=== PATIENT | male | born 1935 | race Caucasian/White ===

== ENCOUNTER 2017-04-09 07:27 | Emergency (ER) | payer MEDICARE, OTHER ==
--- NOTE | 2017-04-09 08:06 | EDM.PDOC ---
ED HPI GENERAL MEDICAL PROBLEM - General Chief Complaint: General Stated Complaint: BY AMBULANCE Time Seen by Provider: 04/09/17 08:00 Source of Information: Reports: Patient, Family () - History of Present Illness Onset: Today Onset Date: 04/09/17 Onset Time: 07:00 Duration: Minutes: Location: Reports: Generalized Severity: Moderate Context: Reports: Other (developed weakness after awoke) Associated Symptoms: Reports: Weakness - Related Data Allergies Allergy/AdvReac Type Severity Reaction Status Date / Time codeine AdvReac Intermediate Nausea and Verified 04/09/17 08:31 Vomiting morphine AdvReac Intermediate Nausea and Verified 04/09/17 08:31 Vomiting Home Meds: Home Meds . [Unable to Verify Home Med List] 04/09/17 [History] Past Medical History Cardiovascular History: Reports: CAD, Other (See Below) (hypertension) ED ROS GENERAL - Review of Systems Review Of Systems: See Below Constitutional: Reports: Weakness HEENT: Reports: No Symptoms Respiratory: Reports: No Symptoms, Other (Oxygen Saturation low on arrival in 80 's) Cardiovascular: Reports: No Symptoms Endocrine: Reports: No Symptoms GI/Abdominal: Reports: No Symptoms : Reports: No Symptoms, Other (Pt. has indwelling laurent catheter ) Musculoskeletal: Reports: No Symptoms, Other (Patient has paraplegia of lower extremities) Skin: Reports: No Symptoms Neurological: Reports: Trouble Speaking, Difficulty Walking, Weakness Psychiatric: Reports: No Symptoms Hematologic/Lymphatic: Reports: No Symptoms Immunologic: Reports: No Symptoms ED EXAM, NEURO - Physical Exam Exam: See Below Text/Narrative:: Awoke with weakness Exam Limited By: No Limitations General Appearance: Alert, WD/WN, No Apparent Distress Eye Exam: Bilateral Eye: PERRL Ears: Normal External Exam, Normal Canal Nose: Normal Inspection, Normal Mucosa Throat/Mouth: Normal Inspection, Normal Lips Head Exam: Atraumatic, Normocephalic Neck: Normal Inspection, Supple Respiratory/Chest: No Respiratory Distress, Lungs Clear, Normal Breath Sounds Cardiovascular: Normal Peripheral Pulses, Regular Rate, Rhythm GI/Abdominal: Normal Bowel Sounds, Soft, Non-Tender (Male) Exam: No Hernia, Other (indwelling laurent catheter in-place) Neurological: Other (On arrival patient with decreased responsiveness/not talking and slowly improved over 10-15mins.(responding appropriately) Patient right sided weakness on exam) DTR: 1+: Bicep (R), Bicep (L), Tricep (R), Tricep (L), Patella (R), Patella (L) , Achilles (R), Achilles (L) Back Exam: Normal Inspection Extremities: Normal Inspection Psychiatric: Normal Affect Skin Exam: Warm, Dry, Intact Course - Vital Signs Last Recorded V/S: Last Vital Signs Temp 37.4 C 04/09/17 07:28 Pulse 87 04/09/17 09:11 Resp 40 H 04/09/17 07:28 BP 164/88 H 04/09/17 07:28 Pulse Ox 95 04/09/17 09:11 - Orders/Labs/Meds Orders: Active Orders 24 hr Category Date Time Status EKG Documentation Completion [RC] STAT Care 04/09/17 07:40 Active RT Aerosol Therapy [RC] ASDIRECTED Care 04/09/17 09:11 Active Chest 1V Frontal [CR] Urgent Exams 04/09/17 07:50 Taken Chest w Cont [CT] Urgent Exams 04/09/17 09:07 Ordered Head wo Cont [CT] Urgent Exams 04/09/17 07:40 Taken CULTURE BLOOD [BC] Stat Lab 04/09/17 09:31 Received Sodium Chloride 0.9% [Normal Saline] 1,000 ml Med 04/09/17 09:00 Active IV ASDIRECTED Medication Orders Sodium Chloride (Normal Saline) 1,000 mls @ 75 mls/hr IV ASDIRECTED TIM Last Admin: 04/09/17 08:56 Dose: 75 mls/hr Labs: Laboratory Tests 04/09/17 04/09/17 04/09/17 Range/Units 07:16 07:16 07:16 WBC 19.7 H (5.0-10.0) 10^3/uL RBC 5.38 (4.6-6.2) 10^6/uL Hgb 15.2 (14.0-18.0) g/dL Hct 45.0 (40.0-54.0) % MCV 83.6 (80-100) fL MCH 28.3 (27.0-34.0) pg MCHC 33.8 (33.0-35.0) g/dL Plt Count 215 (150-450) 10^3/uL Neut % (Auto) 90.7 H (42.2-75.2) % Lymph % (Auto) 2.4 L (20.5-50.1) % [place] % (Auto) 3.8 (2-8) % Eos % (Auto) 2.8 (1.0-3.0) % Baso % (Auto) 0.3 (0.0-1.0) % Add Manual Diff Yes Neutrophils % (Manual) 93 % Band Neutrophils % 1 % Lymphocytes % (Manual) 2 % Monocytes % (Manual) 1 % Eosinophils % (Manual) 3 % PT 9.2 (9.0-12.0) SEC INR 0.9 (0.9-1.2) APTT 25.6 (22.0-34.0) SEC D-Dimer, Quantitative (0-400) ng/mL Sodium 141 (135-145) mmol/L Potassium 4.3 (3.6-5.0) mmol/L Chloride 103 (101-111) mmol/L Carbon Dioxide 24.0 (21.0-31.0) mmol/L Anion Gap 18.3 BUN 23 H (7-18) mg/dL Creatinine 0.6 (0.6-1.3) mg/dL Est Cr Clr Drug Dosing TNP Estimated GFR (MDRD) > 60 BUN/Creatinine Ratio 38.33 Glucose 142 H (74-105) mg/dL Calcium 9.5 (8.4-10.2) mg/dl Total Bilirubin 0.7 (0.2-1.0) mg/dL AST 22 (10-42) IU/L ALT 15 (10-60) IU/L Alkaline Phosphatase 105 (42-121) IU/L Troponin I (0.00-0.02) ng/ml B-Natriuretic Peptide (0-100) pg/ml Total Protein 7.5 (6.7-8.2) g/dl Albumin 3.8 (3.2-5.5) g/dl Globulin 3.7 Albumin/Globulin Ratio 1.03 Urine Color (YELLOW) Urine Appearance (CLEAR) Urine pH (5.0-9.0) Ur Specific [place] (1.005-1.030) Urine Protein (NEGATIVE) Urine Glucose (UA) (NEGATIVE) Urine Ketones (NEGATIVE) Urine Occult Blood (NEGATIVE) Urine Nitrite (NEGATIVE) Urine Bilirubin (NEGATIVE) Urine Urobilinogen (0.2-1.0) mg/dL Ur Leukocyte Esterase (NEGATIVE) Urine RBC /HPF Urine WBC (0-5/HPF) /HPF Ur Epithelial Cells /HPF Amorphous Sediment (0/HPF) /HPF Urine Bacteria (0-FEW/HPF) /HPF 04/09/17 04/09/17 04/09/17 Range/Units 07:16 07:16 07:56 WBC (5.0-10.0) 10^3/uL RBC (4.6-6.2) 10^6/uL Hgb (14.0-18.0) g/dL Hct (40.0-54.0) % MCV (80-100) fL MCH (27.0-34.0) pg MCHC (33.0-35.0) g/dL Plt Count (150-450) 10^3/uL Neut % (Auto) (42.2-75.2) % Lymph % (Auto) (20.5-50.1) % L[place] % (Auto) (2-8) % Eos % (Auto) (1.0-3.0) % Baso % (Auto) (0.0-1.0) % Add Manual Diff Neutrophils % (Manual) % Band Neutrophils % % Lymphocytes % (Manual) % Monocytes % (Manual) % Eosinophils % (Manual) % PT (9.0-12.0) SEC INR (0.9-1.2) APTT (22.0-34.0) SEC D-Dimer, Quantitative 4450 H (0-400) ng/mL Sodium (135-145) mmol/L Potassium (3.6-5.0) mmol/L Chloride (101-111) mmol/L Carbon Dioxide (21.0-31.0) mmol/L Anion Gap BUN (7-18) mg/dL Creatinine (0.6-1.3) mg/dL Est Cr Clr Drug Dosing Estimated GFR (MDRD) BUN/Creatinine Ratio Glucose (74-105) mg/dL Calcium (8.4-10.2) mg/dl Total Bilirubin (0.2-1.0) mg/dL AST (10-42) IU/L ALT (10-60) IU/L Alkaline Phosphatase (42-121) IU/L Troponin I 0.08 H* (0.00-0.02) ng/ml B-Natriuretic Peptide 63 (0-100) pg/ml Total Protein (6.7-8.2) g/dl Albumin (3.2-5.5) g/dl Globulin Albumin/Globulin Ratio Urine Color (YELLOW) Urine Appearance (CLEAR) Urine pH (5.0-9.0) Ur Specific [place] (1.005-1.030) Urine Protein (NEGATIVE) Urine Glucose (UA) (NEGATIVE) Urine Ketones (NEGATIVE) Urine Occult Blood (NEGATIVE) Urine Nitrite (NEGATIVE) Urine Bilirubin (NEGATIVE) Urine Urobilinogen (0.2-1.0) mg/dL Ur Leukocyte Esterase (NEGATIVE) Urine RBC /HPF Urine WBC (0-5/HPF) /HPF Ur Epithelial Cells /HPF Amorphous Sediment (0/HPF) /HPF Urine Bacteria (0-FEW/HPF) /HPF 04/09/17 Range/Units 09:49 WBC (5.0-10.0) 10^3/uL RBC (4.6-6.2) 10^6/uL Hgb (14.0-18.0) g/dL Hct (40.0-54.0) % MCV (80-100) fL MCH (27.0-34.0) pg MCHC (33.0-35.0) g/dL Plt Count (150-450) 10^3/uL Neut % (Auto) (42.2-75.2) % Lymph % (Auto) (20.5-50.1) % [place] % (Auto) (2-8) % Eos % (Auto) (1.0-3.0) % Baso % (Auto) (0.0-1.0) % Add Manual Diff Neutrophils % (Manual) % Band Neutrophils % % Lymphocytes % (Manual) % Monocytes % (Manual) % Eosinophils % (Manual) % PT (9.0-12.0) SEC INR (0.9-1.2) APTT (22.0-34.0) SEC D-Dimer, Quantitative (0-400) ng/mL Sodium (135-145) mmol/L Potassium (3.6-5.0) mmol/L Chloride (101-111) mmol/L Carbon Dioxide (21.0-31.0) mmol/L Anion Gap BUN (7-18) mg/dL Creatinine (0.6-1.3) mg/dL Est Cr Clr Drug Dosing Estimated GFR (MDRD) BUN/Creatinine Ratio Glucose (74-105) mg/dL Calcium (8.4-10.2) mg/dl Total Bilirubin (0.2-1.0) mg/dL AST (10-42) IU/L ALT (10-60) IU/L Alkaline Phosphatase (42-121) IU/L Troponin I (0.00-0.02) ng/ml B-Natriuretic Peptide (0-100) pg/ml Total Protein (6.7-8.2) g/dl Albumin (3.2-5.5) g/dl Globulin Albumin/Globulin Ratio Urine Color Yellow (YELLOW) Urine Appearance Slightly cloudy (CLEAR) Urine pH 5.0 (5.0-9.0) Ur Specific [place] 1.020 (1.005-1.030) Urine Protein Trace H (NEGATIVE) Urine Glucose (UA) Negative (NEGATIVE) Urine Ketones Negative (NEGATIVE) Urine Occult Blood Trace-lysed H (NEGATIVE) Urine Nitrite Positive H (NEGATIVE) Urine Bilirubin Small H (NEGATIVE) Urine Urobilinogen 0.2 (0.2-1.0) mg/dL Ur Leukocyte Esterase Moderate H (NEGATIVE) Urine RBC Not seen /HPF Urine WBC 75-100 H (0-5/HPF) /HPF Ur Epithelial Cells Occasional /HPF Amorphous Sediment (0/HPF) /HPF Urine Bacteria Moderate H (0-FEW/HPF) /HPF Meds: Medications Generic Name Dose Route Start Last Admin Trade Name Freq PRN Reason Stop Dose Admin Sodium Chloride 1,000 mls @ 75 mls/hr 04/09/17 09:00 04/09/17 08:56 Normal Saline IV 75 mls/hr ASDIRECTED TIM Administration Discontinued Medications Generic Name Dose Route Start Last Admin Trade Name Freq PRN Reason Stop Dose Admin Acetaminophen 1,000 mg 04/09/17 08:12 04/09/17 08:23 Tylenol Extra Strength PO 04/09/17 08:13 1,000 mg ONETIME ONE Administration Albuterol/Ipratropium 3 ml 04/09/17 09:11 04/09/17 09:23 Duoneb 3.0-0.5 Mg/3 Ml NEB 04/09/17 09:12 3 ml ONETIME ONE Administration Aspirin 324 mg 04/09/17 10:36 Aspirin PO 04/09/17 10:37 ONETIME ONE Azithromycin 500 mg/ Sodium 250 mls @ 250 mls/hr 04/09/17 09:10 04/09/17 10: 21 Chloride IV 04/09/17 10:09 250 mls/hr ONETIME ONE Administration Ceftriaxone Sodium 1 gm/ 50 mls @ 100 mls/hr 04/09/17 09:10 04/09/17 09:44 Sodium Chloride IV 04/09/17 09:39 100 mls/hr ONETIME ONE Administration Iopamidol 100 ml 04/09/17 09:25 [id number] (76%) IVPUSH 04/09/17 09:26 ONETIME ONE - Re-Assessments/Exams Free Text/Narrative Re-Assessment/Exam: 04/09/17 11:[address] Monteiro at [facility] and will Transfer: Dx. LLL Pneumonia, Elevated Troponin and Elevated D-Dimer Departure - Departure Time of Disposition: 11:02 Disposition: DC/Tfer to Other 70 Condition: Fair Clinical Impression: Elevated troponin level, Elevated d-dimer, Hypoxemia Pneumonia Qualifiers: Pneumonia type: due to unspecified organism Laterality: left Lung location: lower lobe of lung Qualified Code(s): J18.1 - Lobar pneumonia, unspecified organism - Discharge Information Forms: Interfacility Transfer EMTALA - My Orders Last 24 Hours: My Active Orders 04/09/17 07:40 EKG Documentation Completion [RC] STAT Head wo Cont [CT] Urgent 04/09/17 07:50 Chest 1V Frontal [CR] Urgent 04/09/17 09:00 Sodium Chloride 0.9% [Normal Saline] 1,000 ml IV ASDIRECTED 04/09/17 09:07 Chest w Cont [CT] Urgent 04/09/17 09:11 RT Aerosol Therapy [RC] ASDIRECTED 04/09/17 09:31 CULTURE BLOOD [BC] Stat - Assessment/Plan Last 24 Hours: My Active Orders 04/09/17 07:40 EKG Documentation Completion [RC] STAT Head wo Cont [CT] Urgent 04/09/17 07:50 Chest 1V Frontal [CR] Urgent 04/09/17 09:00 Sodium Chloride 0.9% [Normal Saline] 1,000 ml IV ASDIRECTED 04/09/17 09:07 Chest w Cont [CT] Urgent 04/09/17 09:11 RT Aerosol Therapy [RC] ASDIRECTED 04/09/17 09:31 CULTURE BLOOD [BC] Stat
[2017-04-09] MEDS ORDERED: Acetaminophen 500 MG Tab PO ONE (08:12)
[2017-04-09 08:28] LABS: CHLORIDE,CL 103 mmol/L (101-111); SODIUM,NA 141 mmol/L (135-145)
[2017-04-09 08:39] VITALS: BP 164/88
[2017-04-09] MEDS ORDERED: Sodium Chloride 0.9% 1,000 ML IV SCH (09:00)
[2017-04-09] MEDS ORDERED: Azithromycin 500 MG in Sodium Chloride 0.9% 250 ML IV ONE (09:10)
[2017-04-09] MEDS ORDERED: cefTRIAXone 1 GM in Sodium Chloride 0.9% 50 ML IV ONE (09:10)
[2017-04-09] MEDS ORDERED: Albuterol/Ipratropium 3.0-0.5 MG/3 ML Neb Soln NEB ONE (09:11)
[2017-04-09] MEDS ORDERED: Iopamidol 755 Mg/ML 100 ML Bottle IVPUSH ONE (09:25)
[2017-04-09] MEDS ORDERED: Aspirin 81 MG Tab.Chew PO ONE (10:36)
--- NOTE | 2017-04-09 10:53 | PCM.PRNOTE ---
- Free Text/Narrative Note: Pt here with C/O SOB and generalized pain. ED requested anesthesia for IV insertion. Radiology is requesting an IV for PE protocol. Using appropriate universal standards and per protocol, I attempted 18 gauge IV in left AC then left forearm, both unsuccessful. Looked at right side but has an IV infusing in right wrist so unable to use right side. Using US and assisted by RT, I was able to find a small medial vein in the AC. Successfully threaded catheter and able to obtain blood and flush without difficulty. Unfortunately, after about 10 minutes, went to attempt a blood draw and the IV catheter failed, NS infiltrated. IV immediately withdrawn and covered with gauze. Pt given an explanation and understood.
--- NOTE | 2017-04-13 09:40 | EKG ---
04/09/2017- REYMUNDO REID - EKG per my reading shows sinus rhythm with PVC. No acute ST changes. [facility] /[id number]
== END 2017-04-09 11:45 ==
LOC: DL.ED 07:27
DX: J18.9 Pneumonia, unspecified organism (principal); R09.02 Hypoxemia; R79.89 Other specified abnormal findings of blood chemistry; I25.10 Atherosclerotic heart disease of native coronary artery without angina pectoris; I10 Essential (primary) hypertension; R79.1 Abnormal coagulation profile; R41.82 Altered mental status, unspecified; Z88.5 Allergy status to narcotic agent
CPT/HCPCS: 36415; 70450; 71010; 80053; 81001; 83880; 84484; 85025; 85379; 85610; 85730; 87040; 93005; 93010; 94640; 96361; 96365; 96367; 99284; 99285; A9270; J0456; J0696; J7030; J7050